=== PATIENT | female | born 1965 | race Two or more races ===

== ENCOUNTER → 2017-03-07 | Outpatient (CLI) | payer OTHER ==
--- NOTE | ~2017-03-07 | MR103 ---
[facility] A Service of [facility] RADIOLOGY TEXT RESULTS PATIENT: RADHA OROPEZA LOCATION: [facility] : 65 UNIT #: [id number] AGE: [address]: Adan Rosen MD SEX: F ORDER DR: [id number] [facility] [address] [place], [place] [address] [id number] MR#: [id number] Acc #: [id number] NAME: RADHA OROPEZA : 1965 SEX: F STUDY DATE/TIME: 03/07/2017 14:16 UNIT: [facility] ROOM: STUDY DESCRIPTION: MR Knee Wo Contrast Lt Attending Physician: Adan Rosen M.D. Referring Physician: Adan Rosen M.D. Ordering Physician: Adan Rosen M.D. Primary Care Physician: Kj Marquez Jr., A.P.R.N. MRI CENTER REPORT This report is preliminary unless electronic signature is present. EXAM MRI of the left knee without contrast HISTORY 51-year-old female fell May 2016 and began 1 week ago. Complains of diffuse knee pain and swelling. Difficulty walking. FINDINGS Multiplanar multiecho imaging was performed of the left knee utilizing a high field magnet dedicated protocol. In the medial compartment there is a 7 x 14 mm focus of grade 4 chondromalacia along the central weightbearing aspect of the medial femoral condyle with a small amount of subchondral edema. The medial meniscus appears intact. In the lateral compartment the meniscus appears intact. Articular cartilage demonstrates mild chondromalacia lateral compartment. In the patellofemoral compartment there is a mild chondromalacia along the median ridge and medial patellar facet. Trochlear cartilage also demonstrates [id number] grade chondromalacia lateral femoral trochlea. Anterior and posterior cruciate ligaments appear intact. Collateral ligaments and extensor mechanism unremarkable. There is a small knee effusion. Extraarticular soft tissues appear normal. Also demonstrated is an area of high-grade chondromalacia lateral patellar facet measuring about 6 mm. IMPRESSION 1. 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 Also demonstrated is a area of high-grade chondromalacia involving the lateral patellar facet measuring up to 6 mm with undercutting the articular cartilage which may indicate an unstable lesion. 2. A small knee effusion. [facility]. [facility] A Service of [facility] RADIOLOGY TEXT RESULTS PATIENT: RADHA OROPEZA LOCATION: [facility] : 65 UNIT #: [id number] AGE: [address]: Adan Rosen MD SEX: F ORDER DR: 3. No meniscal tear. Dictated by... Austin Crum M.D. THIS IS AN ELECTRONICALLY VERIFIED REPORT Austin Crum M.D. at 03/12/2017 2:48 PM DEANNA/sophie TD: 03/08/2017 03:39 JOB #: [id number] MRI CENTER REPORT Page 1 of 1 COPY
== END | disposition home or self-care (01) ==
LOC: CMRI 02-19 09:00
DX: M25.562 Pain in left knee (principal); D72.819 Decreased white blood cell count, unspecified; L80 Vitiligo; M22.42 Chondromalacia patellae, left knee; M25.462 Effusion, left knee
CPT/HCPCS: 73721